=== PATIENT | female | born 1940 | race Caucasian/White ===

== ENCOUNTER → 2018-04-08 | Outpatient (CLI) | payer MEDICARE | END | disposition home or self-care (01) | LOC: CFH 15:53 | PROVIDERS: ATTEND Family Medicine | DX: N32.89 Other specified disorders of bladder (principal); N18.3 Chronic kidney disease, stage 3 (moderate) | CPT/HCPCS: 76770 ==

== ENCOUNTER 2019-03-26 00:06 | Inpatient (IN) | payer MEDICARE ==
[~2019-03-26] VITALS: Ht 177.8 cm; Wt 67.8 kg
[2019-03-26] MEDS ORDERED: DILTIAZEM 5 MG/ML, 5ML IVPush STA (00:24)
[2019-03-26] MEDS ORDERED: DILTIAZEM 125 MG in SODIUM CHLORIDE 0.9% 100 ML IV SCH ×2 (00:27→02:00)
[2019-03-26] MEDS ORDERED: SODIUM CHLORIDE FLUSH 10ML SYR IVF ONE (00:30)
[2019-03-26] MEDS ORDERED: DILTIAZEM 5 MG/ML, 5ML ONE (00:36)
[2019-03-26 00:38] LABS: BASOPHILS # (AUTO) 0.02 x10^3/uL (0-0.1); BASOPHILS % (AUTO) 1 % (0-1); EOSINOPHILS # (AUTO) 0.08 x10^3/uL (0-0.4); EOSINOPHILS % (AUTO) 2 % (1-7); LYMPHOCYTES # (AUTO) 2.06 x10^3/uL (1-3.4); LYMPHOCYTES % (AUTO) 43 % (22-44); MD NO; MEAN CORPUSCULAR HGB CONC 33.4 g/dL (32.4-35.8); MEAN CORPUSCULAR VOLUME 98.9 fL (80-100); MONOCYTES # (AUTO) 0.46 x10^3/uL (0.2-0.8); MONOCYTES % (AUTO) 10 % (2-9); NEUTROPHILS # (AUTO) 2.14 x10^3/uL (1.8-6.8); NEUTROPHILS % (AUTO) 45 % (42-75); PLATELET COUNT 187 x10^3/uL (130-400); RED BLOOD COUNT 4.09 x10^6/uL (3.82-5.3); RED CELL DISTRIBUTION WIDTH 13.9 % (9.6-15.2)
[2019-03-26 00:50] LABS: INTERNATIONAL NORMALIZED RATIO 1.01 (0.93-1.1); PROTHROMBIN TIME 10.6 Seconds (9.6-11.5)
[2019-03-26 00:51] LABS: ALANINE AMINOTRANSFERASE 24 U/L (12-78); ALBUMIN 4.2 g/dL (3.4-5.0); ANION GAP 8 mmol/L (5-15); CALCIUM 9.2 mg/dL (8.5-10.1); CHLORIDE 111 mmol/L (98-107); CREATININE 0.87 mg/dL (0.55-1.02); T4 (THYROXINE) 10.2 mcg/dL (4.8-13.9)
[2019-03-26 00:55] LABS: ALKALINE PHOSPHATASE 72 U/L (45-117); BILIRUBIN,TOTAL 0.7 mg/dL (0.2-1.0); TOTAL PROTEIN 7.7 g/dL (6.4-8.2); TROPONIN I < 0.015 ng/mL (0.000-0.045)
--- NOTE | 2019-03-26 00:55 | NUR ---
TASK RN: PT RESTING ON KRISTIE. DELILAH. VSS. DILT GTT INFUSING AT SET RATE. PT AWARE OF POC FOR ADMIT AND IS AGREEABLE.
[2019-03-26] MEDS ORDERED: LEVO25TA4 PO (00:57)
[2019-03-26] MEDS ORDERED: LATA7.5D EACHEYE (00:57)
[2019-03-26] MEDS ORDERED: ASPIRIN 325 MG TABLET ONE (01:22)
[2019-03-26] MEDS ORDERED: ASPIRIN 325 MG TABLET PO ONE (01:30)
[2019-03-26] MEDS ORDERED: ONDANSETRON ODT 4 MG PO PRN (02:00)
[2019-03-26] MEDS ORDERED: ONDANSETRON 4 MG TABLET PO PRN (02:00)
[2019-03-26 02:44] VITALS: BP_SYST 122; BP_DIAS 16; BP_DIAS 76
[2019-03-26 04:45] VITALS: BP 117/70
[2019-03-26 06:32] VITALS: BP 103/67
[2019-03-26] MEDS ORDERED: ASPIRIN 81 MG TABLET CHEW PO/NG SCH (09:00)
[2019-03-26] MEDS ORDERED: OMNIPAQUE 350 MG/ML, 100ML BOTTLE ONE (12:18)
[2019-03-26] MEDS: METOPROLOL SUCCINATE 25 MG TAB.ER.24H PO SCH (13:04)
[2019-03-26] MEDS: APIXABAN 5 MG TABLET PO SCH ×2 (13:05→21:15)
[2019-03-26 13:06] VITALS: BP 104/65
[2019-03-26] MEDS ORDERED: APIXABAN 5 MG TABLET PO SCH (21:00)
[2019-03-26] MEDS: ATORVASTATIN 40 MG TABLET PO SCH (21:15)
[2019-03-26 21:25] VITALS: BP 139/83
[2019-03-27 03:14] VITALS: BP 114/60
[2019-03-27] MEDS: LEVOTHYROXINE 75 MCG TABLET PO SCH (05:13)
[2019-03-27 05:24] LABS: BASOPHILS # (AUTO) 0.01 x10^3/uL (0-0.1); BASOPHILS % (AUTO) 0 % (0-1); EOSINOPHILS # (AUTO) 0.12 x10^3/uL (0-0.4); EOSINOPHILS % (AUTO) 4 % (1-7); LYMPHOCYTES # (AUTO) 1.85 x10^3/uL (1-3.4); LYMPHOCYTES % (AUTO) 53 % (22-44); MD NO; MEAN CORPUSCULAR HEMOGLOBIN 33.3 pg (27.0-34.8); MEAN CORPUSCULAR HGB CONC 33.7 g/dL (32.4-35.8); MEAN PLATELET VOLUME 9.1 fL (7.4-10.4); MONOCYTES # (AUTO) 0.38 x10^3/uL (0.2-0.8); MONOCYTES % (AUTO) 11 % (2-9); NEUTROPHILS # (AUTO) 1.13 x10^3/uL (1.8-6.8); NEUTROPHILS % (AUTO) 32 % (42-75); PLATELET COUNT 148 x10^3/uL (130-400); RED BLOOD COUNT 3.53 x10^6/uL (3.82-5.3); RED CELL DISTRIBUTION WIDTH 14.3 % (9.6-15.2)
[2019-03-27 05:27] LABS: CHLORIDE 112 mmol/L (98-107)
[2019-03-27 05:33] LABS: ALANINE AMINOTRANSFERASE 22 U/L (12-78); ALBUMIN 3.4 g/dL (3.4-5.0); ALKALINE PHOSPHATASE 57 U/L (45-117); ANION GAP 5 mmol/L (5-15); BILIRUBIN,TOTAL 0.6 mg/dL (0.2-1.0); CALCIUM 8.9 mg/dL (8.5-10.1); CHOL/HDL RATIO 1.8; CHOLESTEROL, TOTAL 170 mg/dL (140-239); CREATININE 0.76 mg/dL (0.55-1.02); HDL CHOL % 55 % (28-40); HDL CHOLESTEROL (DIRECT) 93 mg/dL (40-60); LDL CHOLESTEROL,CALCULATED 68 mg/dL (54-169); LDL/HDL RATIO 0.7 (0.5-3.0); TOTAL PROTEIN 6.2 g/dL (6.4-8.2); TRIGLYCERIDES 43 mg/dL (50-200); VLDL CHOLESTEROL 9 mg/dL (0-25)
[2019-03-27] MEDS ORDERED: ASPIRIN 81 MG TABLET CHEW PO/NG SCH (09:00)
[2019-03-27 09:11] VITALS: BP 92/54
[2019-03-27] MEDS: APIXABAN 5 MG TABLET PO SCH ×2 (09:14→21:00)
[2019-03-27 10:16] VITALS: BP 122/72
[2019-03-27] MEDS: METOPROLOL SUCCINATE 25 MG TAB.ER.24H PO SCH (10:26)
[2019-03-27 13:20] VITALS: BP 103/64
[2019-03-27 19:24] VITALS: BP 104/65
[2019-03-27] MEDS: ATORVASTATIN 40 MG TABLET PO SCH (21:00)
[2019-03-28 00:33] VITALS: BP 143/81
[2019-03-28] MEDS ORDERED: METOPROLOL TARTRATE 25 MG TABLET PO SCH (06:00)
[2019-03-28] MEDS: LEVOTHYROXINE 75 MCG TABLET PO SCH (06:15)
[2019-03-28 07:19] VITALS: BP 119/76
[2019-03-28] MEDS: APIXABAN 5 MG TABLET PO SCH (09:37)
[2019-03-28] MEDS ORDERED: APIX5TAB PO (12:08)
[2019-03-28] MEDS ORDERED: METO25TA35 PO (12:08)
[2019-03-28] MEDS ORDERED: ATOR40TA78 PO (12:08)
[2019-03-28 13:15] VITALS: BP 128/74
== END 2019-03-28 14:00 | disposition home or self-care (01) | DRG 65 ==
LOC: ED 01:17 → EDIP 01:18 → 5SO 02:16 → DCLOUNGE 03-28 13:47
PROVIDERS: ADMIT Internal Medicine; ATTEND Internal Medicine
DX: I63.512 Cerebral infarction due to unspecified occlusion or stenosis of left middle cerebral artery (principal); D68.69 Other thrombophilia; G81.91 Hemiplegia, unspecified affecting right dominant side; R47.81 Slurred speech; R29.703 NIHSS score 3; R29.810 Facial weakness; I48.91 Unspecified atrial fibrillation; E03.9 Hypothyroidism, unspecified; E78.5 Hyperlipidemia, unspecified; H40.9 Unspecified glaucoma; I35.8 Other nonrheumatic aortic valve disorders; Z79.82 Long term (current) use of aspirin; Z82.49 Family history of ischemic heart disease and other diseases of the circulatory system; Z85.038 Personal history of other malignant neoplasm of large intestine; Z87.891 Personal history of nicotine dependence; Z90.49 Acquired absence of other specified parts of digestive tract; Z92.21 Personal history of antineoplastic chemotherapy; Z80.52 Family history of malignant neoplasm of bladder; Z82.3 Family history of stroke; Z81.8 Family history of other mental and behavioral disorders; Z88.5 Allergy status to narcotic agent; Z88.0 Allergy status to penicillin
CPT/HCPCS: 36415; 70450; 70496; 70498; 70551; 80053; 80061; 83735; 84436; 84443; 84484; 85025; 85610; 85730; 93005; 93306; 93880; 99291; G0378; Q9967; 92523-GN

== ENCOUNTER → 2020-01-15 | Outpatient (CLI) | payer MEDICARE ==
[~2020-01-15] MED LIST: APIX5TAB PO; ATOR40TA78 PO; LATA7.5D EACHEYE; LEVO25TA4 PO; METO25TA35 PO
== END | disposition home or self-care (01) ==
LOC: CFH 14:19
PROVIDERS: ATTEND Family Medicine
DX: N63.12 Unspecified lump in the right breast, upper inner quadrant (principal); N63.11 Unspecified lump in the right breast, upper outer quadrant; R92.1 Mammographic calcification found on diagnostic imaging of breast
CPT/HCPCS: 76642; 77066; G0279

== ENCOUNTER 2020-01-18 11:46 | Outpatient (CLI) | payer MEDICARE ==
[2020-01-18] MEDS ORDERED: SODIUM BICARBONATE 4.2%, 5ML ONE (13:31)
[2020-01-18] MEDS ORDERED: LIDOCAINE 1%, 20ML ONE (13:31)
[2020-01-18] MEDS ORDERED: LIDOCAINE 1%-EPI 1:100K, 20ML ONE (13:31)
== END 2020-01-18 23:59 | disposition home or self-care (01) ==
LOC: CFH 11:46
PROVIDERS: ATTEND Family Medicine
DX: N63.10 Unspecified lump in the right breast, unspecified quadrant (principal); C50.411 Malignant neoplasm of upper-outer quadrant of right female breast; Z17.0 Estrogen receptor positive status [ER+]; Z79.899 Other long term (current) drug therapy; Z88.0 Allergy status to penicillin; Z88.1 Allergy status to other antibiotic agents; Z72.89 Other problems related to lifestyle; Z87.891 Personal history of nicotine dependence; Z85.038 Personal history of other malignant neoplasm of large intestine; Z82.49 Family history of ischemic heart disease and other diseases of the circulatory system
CPT/HCPCS: 19083; 77065; 88305; 88341; 88342; 88360; 88361; J3490; 19285

== ENCOUNTER 2020-02-15 12:59 | Outpatient (CLI) | payer MEDICARE ==
[2020-02-15] MEDS ORDERED: ATOR40TA78 PO (13:26)
[2020-02-15] MEDS ORDERED: APIX2.5T PO (13:26)
[2020-02-15] MEDS ORDERED: METO25TA35 PO (13:26)
[2020-02-15] MEDS ORDERED: LEVO75TA5 PO (13:26)
== END 2020-02-15 23:59 | disposition home or self-care (01) ==
LOC: STAR 12:59
PROVIDERS: ATTEND Surgery
DX: Z01.818 Encounter for other preprocedural examination (principal); Z20.828 Contact with and (suspected) exposure to other viral communicable diseases
CPT/HCPCS: 36415; 87635; 93005

== ENCOUNTER 2020-02-19 09:23 | Day surgery (SDC) | payer MEDICARE ==
[~2020-02-19] VITALS: Ht 180.3 cm; Wt 60.0 kg
[~2020-02-19 09:23] MED LIST changes: +APIX2.5T PO; +BUPIVACAINE/EPI 0.5% 1:200K ONE; +ISOSULFAN BLUE 10 MG/ML, 5ML IV ONE; +LEVO75TA5 PO
[2020-02-19] MEDS ORDERED: LACTATED RINGERS 1,000 ML IV SCH (10:16)
[2020-02-19 10:19] VITALS: BP 150/74
[2020-02-19] MEDS ORDERED: DIAZEPAM 5 MG TABLET PO ONE (10:30)
[2020-02-19] MEDS ORDERED: CHLORHEXIDINE 15 ML UDC MM ONE (10:30)
[2020-02-19] MEDS ORDERED: ACETAMINOPHEN 500 MG TABLET PO ONE (10:30)
[2020-02-19] MEDS ORDERED: ONDANSETRON ODT 8 MG PO ONE (10:30)
[2020-02-19] MEDS ORDERED: PROPOFOL 50 ML ONE (10:46)
[2020-02-19] MEDS ORDERED: FENTANYL PF 250 MCG/5ML ONE (10:46)
[2020-02-19] MEDS ORDERED: PROPOFOL 10 MG/ML, 20ML ONE (11:40)
[2020-02-19] MEDS ORDERED: OXYcodone 5 MG/5 ML ORAL.SOL UDC PO PRN (12:00)
[2020-02-19] MEDS ORDERED: HYDROmorphone 1 MG/ML, 1ML INJ IVPush PRN (12:00)
[2020-02-19] MEDS ORDERED: DIAZEPAM 5 MG/ML, 2ML IVPush PRN (12:00)
[2020-02-19] MEDS ORDERED: ONDANSETRON 2MG/ML, 2ML IVPush PRN (12:00)
[2020-02-19] MEDS ORDERED: DIPHENHYDRAMINE 50 MG/ML, 1ML IVPush PRN (12:00)
[2020-02-19] MEDS ORDERED: PROMETHAZINE 25 MG/ML, 1ML IVPush PRN (12:00)
[2020-02-19] MEDS ORDERED: FENTANYL PF 100 MCG/2ML IV PRN (12:00)
[2020-02-19] MEDS ORDERED: EPHEDRINE 50 MG/ML, 1ML IVPush PRN (12:00)
[2020-02-19] MEDS ORDERED: LABETALOL 5MG/ML, 20ML IV PRN (12:00)
[2020-02-19] MEDS ORDERED: EPHEDRINE 50 MG/ML, 1ML IM PRN (12:00)
== END 2020-02-19 16:20 | disposition home or self-care (01) ==
LOC: OUT 09:23 → EDSTATUS 12:00 → OUT 16:20
PROVIDERS: ATTEND Surgery
DX: C50.511 Malignant neoplasm of lower-outer quadrant of right female breast (principal); C77.3 Secondary and unspecified malignant neoplasm of axilla and upper limb lymph nodes; E03.9 Hypothyroidism, unspecified; Z17.0 Estrogen receptor positive status [ER+]; Z79.01 Long term (current) use of anticoagulants; Z79.890 Hormone replacement therapy; Z79.899 Other long term (current) drug therapy; Z87.891 Personal history of nicotine dependence; Z88.0 Allergy status to penicillin; Z88.5 Allergy status to narcotic agent; Z98.890 Other specified postprocedural states; Z86.73 Personal history of transient ischemic attack (TIA), and cerebral infarction without residual deficits
CPT/HCPCS: 19120; 38525; 38792; 88305; 88307; A9541; J2704; J3010; J7120; Q0162

== ENCOUNTER → 2020-03-08 | Outpatient (CLI) | payer MEDICARE ==
[~2020-03-08] MED LIST changes: -BUPIVACAINE/EPI 0.5% 1:200K ONE; -ISOSULFAN BLUE 10 MG/ML, 5ML IV ONE
== END | disposition home or self-care (01) ==
LOC: ROC 07:32
PROVIDERS: ATTEND Radiology Radiation Oncology
DX: C50.411 Malignant neoplasm of upper-outer quadrant of right female breast (principal); Z17.0 Estrogen receptor positive status [ER+]; E03.9 Hypothyroidism, unspecified; Z79.01 Long term (current) use of anticoagulants; Z79.899 Other long term (current) drug therapy; Z98.890 Other specified postprocedural states; Z87.891 Personal history of nicotine dependence; Z72.89 Other problems related to lifestyle; Z85.038 Personal history of other malignant neoplasm of large intestine
CPT/HCPCS: G0463

== ENCOUNTER → 2020-03-14 | Outpatient (CLI) | payer MEDICARE ==
[~2020-03-14] MED LIST changes: +OMNIPAQUE 350 MG/ML, 100ML BOTTLE ONE
[2020-03-14 11:17] LABS: CREATININE 0.92 mg/dL (0.55-1.02)
== END | disposition home or self-care (01) ==
LOC: RAD 10:45
PROVIDERS: ATTEND Pathology Hematology
DX: C50.211 Malignant neoplasm of upper-inner quadrant of right female breast (principal); C18.9 Malignant neoplasm of colon, unspecified; E05.90 Thyrotoxicosis, unspecified without thyrotoxic crisis or storm; J98.4 Other disorders of lung; M16.12 Unilateral primary osteoarthritis, left hip; M47.816 Spondylosis without myelopathy or radiculopathy, lumbar region; M41.86 Other forms of scoliosis, lumbar region; M85.80 Other specified disorders of bone density and structure, unspecified site; M51.36 Other intervertebral disc degeneration, lumbar region
CPT/HCPCS: 36415; 71260; 74177; 78306; 82565; A9503; Q9967

== ENCOUNTER → 2020-04-19 | Outpatient (CLI) | payer MEDICARE ==
[~2020-04-19] MED LIST changes: -OMNIPAQUE 350 MG/ML, 100ML BOTTLE ONE
== END | disposition home or self-care (01) ==
LOC: CFH 11:14
PROVIDERS: ATTEND Pathology Hematology
DX: C50.211 Malignant neoplasm of upper-inner quadrant of right female breast (principal); C18.9 Malignant neoplasm of colon, unspecified; E05.90 Thyrotoxicosis, unspecified without thyrotoxic crisis or storm; M85.80 Other specified disorders of bone density and structure, unspecified site
CPT/HCPCS: 77080

== ENCOUNTER 2020-05-07 13:34 | Emergency (ER) | payer MEDICARE ==
[~2020-05-07] VITALS: Ht 175.3 cm; Wt 60.1 kg
--- NOTE | 2020-05-07 14:01 | NUR ---
PT SITTING UP ON GURNEY AWAKE & COMFORTABLE, RESPONDS APPROP TO STAFF, NAD, COMFORT MEASURES PROVIDED, CALL LIGHT WITHIN REACH.
[2020-05-07 14:53] LABS: BASOPHILS % (AUTO) 0 % (0-1); EOSINOPHILS % (AUTO) 2 % (1-7); LYMPHOCYTES % (AUTO) 9 % (22-44); MD NO; MEAN CORPUSCULAR HEMOGLOBIN 32.6 pg (27.0-34.8); MEAN PLATELET VOLUME 8.9 fL (7.4-10.4); MONOCYTES % (AUTO) 17 % (2-9); NEUTROPHILS % (AUTO) 72 % (42-75); PLATELET COUNT 107 x10^3/uL (130-400); RED BLOOD COUNT 3.71 x10^6/uL (3.82-5.3); RED CELL DISTRIBUTION WIDTH 14.2 % (9.6-15.2)
[2020-05-07 14:57] LABS: ALBUMIN 3.7 g/dL (3.4-5.0); ANION GAP 7 mmol/L (5-15); CALCIUM 9.1 mg/dL (8.5-10.1); CHLORIDE 107 mmol/L (98-107)
[2020-05-07 15:00] LABS: ALANINE AMINOTRANSFERASE 34 U/L (12-78); ALKALINE PHOSPHATASE 105 U/L (45-117); BILIRUBIN,TOTAL 0.7 mg/dL (0.2-1.0); CREATININE 0.82 mg/dL (0.55-1.02); TOTAL PROTEIN 6.9 g/dL (6.4-8.2)
--- NOTE | 2020-05-07 15:02 | NUR ---
PT REMAINS SITTING UP ON GURNEY AWAKE & COMFORTABLE, RESPONDS APPROP TO STAFF, NAD, COMFORT MEASURES PROVIDED, CALL LIGHT WITHIN REACH.
--- NOTE | 2020-05-07 16:04 | NUR ---
PT SITTING UP ON GURNEY AWAKE & COMFORTABLE, RESPONDS APPROP TO STAFF, NAD, NO NEEDS AT THIS TIME, CALL LIGHT WITHIN REACH.
[2020-05-07] MEDS ORDERED: DILTIAZEM 5 MG/ML, 5ML IV ONE (16:30)
[2020-05-07] MEDS ORDERED: DILTIAZEM 125 MG in SODIUM CHLORIDE 0.9% 100 ML IV SCH (16:30)
[2020-05-07] MEDS ORDERED: DILTIAZEM 5 MG/ML, 5ML ONE (16:40)
[2020-05-07 17:05] VITALS: BP 101/76
--- NOTE | 2020-05-07 17:05 | NUR ---
PT CONTINUES SITTING UP ON GURNEY AWAKE & COMFORTABLE, RESPONDS APPROP TO STAFF, NAD WHILE PT IN & OUT OF SINUS RHYTHM- DR SUN AWARE, NO NEEDS AT THIS TIME, CALL LIGHT WITHIN REACH.
[2020-05-07 17:24] LABS: T4 (THYROXINE) 11.9 mcg/dL (4.8-13.9); TROPONIN I < 0.015 ng/mL (0.000-0.045)
--- NOTE | 2020-05-07 18:03 | NUR ---
PT SITTING UP ON GURNEY AWAKE & COMFORTABLE, RESPONDS APPROP TO STAFF, NAD WHILE PT CONTINUES IN & OUT OF SINUS RHYTHM, NO NEEDS AT THIS TIME, CALL LIGHT WITHIN REACH.
--- NOTE | 2020-05-07 19:03 | NUR ---
Patient given discharge instructions and they have confirmed that they understand the instructions. Patient ambulatory with steady gait.
== END 2020-05-07 19:04 | disposition home or self-care (01) ==
LOC: ED 18:55
DX: I48.0 Paroxysmal atrial fibrillation (principal); R00.0 Tachycardia, unspecified; Z86.73 Personal history of transient ischemic attack (TIA), and cerebral infarction without residual deficits; I48.91 Unspecified atrial fibrillation; E03.9 Hypothyroidism, unspecified; Z85.038 Personal history of other malignant neoplasm of large intestine
CPT/HCPCS: 36415; 80053; 83880; 84436; 84443; 84484; 85025; 93005; 99285

== ENCOUNTER 2020-05-19 14:24 | Emergency (ER) | payer MEDICARE ==
[~2020-05-19] VITALS: Ht 175.3 cm; Wt 60.2 kg
[2020-05-19] MEDS ORDERED: DILTIAZEM 5 MG/ML, 5ML ONE (14:53)
[2020-05-19] MEDS ORDERED: DILTIAZEM 5 MG/ML, 5ML IVPush ONE (15:00)
[2020-05-19] MEDS ORDERED: SODIUM CHLORIDE FLUSH 10ML SYR IVF ONE (15:00)
[2020-05-19] MEDS ORDERED: SODIUM CHLORIDE 0.9% 1,000ML IVBOLUS ONE (15:00)
--- NOTE | 2020-05-19 15:15 | NUR ---
IV STARTED. ORDERED MEDS AND FLUIDS INFUSING. WILL CONTINUE TO MONITOR. DAUGHTER AT BEDSIDE. CALL LIGHT WITHIN REACH.
[2020-05-19 15:19] LABS: BASOPHILS % (AUTO) 0 % (0-1); EOSINOPHILS % (AUTO) 2 % (1-7); LYMPHOCYTES % (AUTO) 14 % (22-44); MEAN CORPUSCULAR HEMOGLOBIN 32.2 pg (27.0-34.8); MEAN CORPUSCULAR HGB CONC 33.6 g/dL (32.4-35.8); MEAN PLATELET VOLUME 8.6 fL (7.4-10.4); MONOCYTES % (AUTO) 19 % (2-9); NEUTROPHILS % (AUTO) 65 % (42-75); PLATELET COUNT 164 x10^3/uL (130-400); RED BLOOD COUNT 3.97 x10^6/uL (3.82-5.3); RED CELL DISTRIBUTION WIDTH 13.9 % (9.6-15.2)
[2020-05-19 15:20] LABS: ALANINE AMINOTRANSFERASE 30 U/L (12-78); ANION GAP 7 mmol/L (5-15); CALCIUM 9.8 mg/dL (8.5-10.1); CHLORIDE 105 mmol/L (98-107); CREATININE 0.91 mg/dL (0.55-1.02)
[2020-05-19 15:24] LABS: MD NO
[2020-05-19 15:30] LABS: ALKALINE PHOSPHATASE 112 U/L (45-117); BILIRUBIN,TOTAL 0.9 mg/dL (0.2-1.0); TOTAL PROTEIN 7.7 g/dL (6.4-8.2)
[2020-05-19] MEDS ORDERED: SODIUM CHLORIDE 0.9%, 500ML IVBOLUS ONE (16:00)
--- NOTE | 2020-05-19 16:20 | NUR ---
PT ABLE TO AMBULATE TO BATHROOM STEADILY TO PROVIDE URINE SAMPLE. URINE WALKED TO LAB. PT HOOKED BACK UP TO VITALS MONITORS. WILL CONTINUE TO MONITOR.
[2020-05-19 16:27] LABS: MICROSCOPIC NOT IND
[2020-05-19] MEDS ORDERED: PROCAINAMIDE HCL 500 MG/ML, 2ML IV ONE (16:30)
[2020-05-19] MEDS ORDERED: PROCAINAMIDE HCL IV ONE (17:00)
[2020-05-19] MEDS ORDERED: DEXTROSE 5% IV ONE (17:00)
--- NOTE | 2020-05-19 18:06 | NUR ---
PT HAS CONVERTED INTO NSR. EKG HAS BEEN DONE. ERP AWARE AND HAS SPOKEN WITH PT. DAUGHTER BACK AT BEDSIDE. WILL CONTINUE TO MONITOR. PT .
[2020-05-19 18:30] VITALS: BP 118/61
[2020-05-29] MEDS ORDERED: AMIO200T42 PO ×3 (12:48→14:46)
[2020-05-29] MEDS ORDERED: METO25TA35 PO (12:48)
== END 2020-05-19 18:48 | disposition home or self-care (01) ==
LOC: ED 16:40
DX: I48.0 Paroxysmal atrial fibrillation (principal); Z85.3 Personal history of malignant neoplasm of breast; E03.9 Hypothyroidism, unspecified; R00.0 Tachycardia, unspecified; Z86.73 Personal history of transient ischemic attack (TIA), and cerebral infarction without residual deficits; Z85.038 Personal history of other malignant neoplasm of large intestine
CPT/HCPCS: 36415; 80053; 81003; 84443; 85025; 93005; 96361; 96365; 96375; 99285; J2690; J7030; J7040

== ENCOUNTER → 2020-05-22 | Outpatient (CLI) | payer MEDICARE | END | disposition home or self-care (01) | LOC: ROC 07:45 | PROVIDERS: ATTEND Radiology Radiation Oncology | DX: C50.411 Malignant neoplasm of upper-outer quadrant of right female breast (principal); I48.0 Paroxysmal atrial fibrillation; E03.9 Hypothyroidism, unspecified; M16.12 Unilateral primary osteoarthritis, left hip; Z17.0 Estrogen receptor positive status [ER+]; Z79.01 Long term (current) use of anticoagulants; Z87.891 Personal history of nicotine dependence; Z79.899 Other long term (current) drug therapy; Z85.038 Personal history of other malignant neoplasm of large intestine; Z86.73 Personal history of transient ischemic attack (TIA), and cerebral infarction without residual deficits | CPT/HCPCS: G0463 ==

== ENCOUNTER 2020-05-24 15:30 | Inpatient (IN) | payer MEDICARE ==
[~2020-05-24] VITALS: Ht 175.3 cm; Wt 60.1 kg
[2020-05-24] MEDS ORDERED: DILTIAZEM 5 MG/ML, 5ML ONE (16:21)
[2020-05-24] MEDS ORDERED: DILTIAZEM 5 MG/ML, 5ML IV ONE (16:30)
[2020-05-24] MEDS ORDERED: DILTIAZEM 125 MG in SODIUM CHLORIDE 0.9% 100 ML IV SCH ×2 (16:30→19:00)
[2020-05-24] MEDS ORDERED: SODIUM CHLORIDE FLUSH 10ML SYR IVF ONE (16:30)
--- NOTE | 2020-05-24 16:30 | NUR ---
PT PRESENTS TO ED WITH C/O GENERALIZED WEAKNESS/DIZZINESS , PALPITATIONS, ONSET THIS AM, HX AFIB. PT TAKES ELIQUIS TWICE DAILY. PT STATES LAST DOSE WAS 0830 THIS AM AND SHE HAS NOT MISSED ANY DOSES. PT FOUND TO BE IN AFIB, RATE 90-130'S ON MONITOR. EKG TAKEN IN TRIAGE, REVIEWED BY ERP. ALL MONITORS IN PLACE. PT DENIES PAIN. PT A&O, RESPS EVEN AND UNLABORED. PIV PLACED, PT MEDICATED PER EMAR WITH DILTIAZEM, PUSHED SLOWLY OVER 5 MIN. MINIMAL RESPONSE IN RATE. CALL LIGHT IN REACH.
[2020-05-24 16:47] LABS: ALBUMIN 3.8 g/dL (3.4-5.0); ANION GAP 6 mmol/L (5-15); CALCIUM 9.6 mg/dL (8.5-10.1); CHLORIDE 104 mmol/L (98-107); CREATININE 0.88 mg/dL (0.55-1.02)
[2020-05-24 16:51] LABS: BASOPHILS % (AUTO) 1 % (0-1); EOSINOPHILS % (AUTO) 2 % (1-7); LYMPHOCYTES % (AUTO) 14 % (22-44); MEAN CORPUSCULAR HEMOGLOBIN 32.3 pg (27.0-34.8); MEAN CORPUSCULAR HGB CONC 33.6 g/dL (32.4-35.8); MEAN PLATELET VOLUME 8.2 fL (7.4-10.4); MONOCYTES % (AUTO) 14 % (2-9); NEUTROPHILS % (AUTO) 69 % (42-75); PLATELET COUNT 172 x10^3/uL (130-400); RED CELL DISTRIBUTION WIDTH 13.9 % (9.6-15.2); TROPONIN I < 0.015 ng/mL (0.000-0.045)
[2020-05-24 16:54] LABS: MD NO
[2020-05-24] MEDS ORDERED: PROPOFOL 10 MG/ML, 20ML ONE (17:17)
--- NOTE | 2020-05-24 17:30 | NUR ---
PT COUNSELED BY MD SUN, AGREES TO TRY ELECTRICAL CARDIOVERSION WITH PROCEDURAL SEDATION. RN INSTRUCTED TO HOLD DILTIAZEM GTT AT THIS TIME. CONSENT FORM SIGNED BY PT AND EDIA. PT IS IN AFIB, RATE 90-130'S, WITH NO ECTOPY. THONG SUN NOTIFIED PT HAS RECENTLY UNDERGONE RT LUMPECTOMY AND LYMPH NODE REMOVAL 02/2020 WITH RADIATION THAT WAS COMPLETED 3 WEEKS AGO. SURGICAL SITE WELL APPROXIMATED, SKIN REDDENED TO RADIATION SITES. PADS FOR CARDIOVERSION WERE NOT PLACED ON IRRITATED SKIN. DAUGHTER AT BEDSIDE.
--- NOTE | 2020-05-24 17:50 | NUR ---
ELECTRICAL CARDIOVERSION START TIME WAS 174, END TIME 174. PT GIVEN PROPOFOL BY S[place] SUN 50MG (AT 174), AND 30 MG (AT 1745) FOR TOTAL OF 80 MG. PT DEFIBRILLATED TWICE, ONCE AT 174, SECOND TIME AT 1746 , EACH WITH ENERGY 200J. PT TOLERATED WELL. ALL MONITORS IN PLACE INCLUDING ETCO2 MONITOR. SEE PAPER CHARTING FOR INTRA-PROCEDURE VITAL SIGNS AND SEDATION SCORE.
--- NOTE | 2020-05-24 17:58 | NUR ---
CARDIOVERSION WITH PROCEDURAL SEDATION COMPLETE, PT RETURNED TO BASELINE SEDATION SCORE. PT IS STILL IN AFIB, RATE 90-130 POST CARDIOVERSION, MD INSTRUCTED RN TO START DILTIAZEM DRIP AT 10MG/HR. DILTIAZEM GTT INITIATED. PT A&O, RESPS EVEN AND UNLABORED, PT ABLE TO SPEAK IN FULL SENTENCES WITHOUT DIFFICULTY. PT DENIES PAIN. PT TO BE ADMITTED FOR AFIB RATE CONTROL, PT AND DAUGHTER EDUCATED, AGREEABLE TO POC.
--- NOTE | 2020-05-24 18:29 | NUR ---
KING SOMMER AT BEDSIDE TO ADMIT PT. PT'S ETCO2 MAINTAINING LEVEL OF 29-32 POST PROCEDURE. PT IS A&OX4, RESPS EVEN AND UNLABORED, SPEAKING CLEARLY. PT DENIES PAIN. DAUGTHER AT BEDSIDE. 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 DILTIAZEM GTT INFUSING AT 10MG/HR.
[2020-05-24] MEDS ORDERED: SODIUM CHLORIDE FLUSH 10ML SYR IVF PRN (18:30)
[2020-05-24] MEDS ORDERED: ACETAMINOPHEN 325 MG TABLET PO PRN (19:00)
[2020-05-24] MEDS ORDERED: ONDANSETRON ODT 4 MG PO PRN (19:00)
[2020-05-24] MEDS ORDERED: POLYETHYLENE GLYCOL 17 GM PACKET PO PRN (19:00)
[2020-05-24] MEDS ORDERED: BISACODYL 10 MG SUPP PR PRN (19:00)
--- NOTE | 2020-05-24 19:00 | NUR ---
report given to SHAMAR Camacho who is assuming care.
--- NOTE | 2020-05-24 19:03 | NUR ---
REPORT FROM WERNER IBANEZ
--- NOTE | 2020-05-24 19:06 | NUR ---
pt meeting some sepsis criteria including pneumonia, tachycardia, and low wbc. ACCOUNTING TUTOR aware of low wbc, states this is secondary to recent radiation. ACCOUNTING TUTORZaid Aparicio called to notify pt meeting sepsis criteria, no answer. message left with request to call back. SHAMAR Camacho aware of need to address suspected sepsis.
[2020-05-24 19:12] LABS: FREE T4 (FREE THYROXINE) 1.54 ng/dL (0.76-1.46)
--- NOTE | 2020-05-24 19:13 | NUR ---
THIS RN SPOKE WITH KING SOMMER, PT'S PNEUOMONIA READ ON XRAY AND SEPSIS MARKERS DISCUSSED. CHECK SERVICES CLERK HAS REVIEWED CXR AND STATES THIS IS LIKELY NOT PNEUMONIA, SUSPECTED DAMAGE SECONDARY TO RADIATION IN THIS REGION. CHECK SERVICES CLERK STATES ANTIBIOTICS AND SEPSIS ORDER SET NOT INDICATED AT THIS TIME.
--- NOTE | 2020-05-24 19:56 | NUR ---
PT UP TO BSC, DENIES DIZZYNESS. HR [id number] A-FIB NOTED ON MONITOR, DILT GTT INFUSING
[2020-05-24] MEDS ORDERED: ATORVASTATIN 40 MG TABLET ONE (20:22)
[2020-05-24] MEDS ORDERED: METOPROLOL TARTRATE 25 MG TAB ONE (20:22)
[2020-05-24] MEDS: APIXABAN 2.5 MG TABLET PO SCH (20:46)
--- NOTE | 2020-05-24 20:50 | NUR ---
PT GIVEN CRACKERS AND PM MEDS
--- NOTE | 2020-05-24 20:53 | NUR ---
REPORT GIVEN TO SOTERO IBANEZ
[2020-05-24] MEDS ORDERED: METOPROLOL TARTRATE 25 MG TAB PO SCH (21:00)
[2020-05-24] MEDS ORDERED: ATORVASTATIN 40 MG TABLET PO SCH (21:00)
[2020-05-24] MEDS ORDERED: MORPHINE SULFATE 4 MG/ML, 1ML ONE (21:07)
[2020-05-24 21:25] VITALS: BP 102/65
[2020-05-24] MEDS: SODIUM CHLORIDE FLUSH 10ML SYR IVF SCH (23:26)
[2020-05-24] MEDS ORDERED: LATANOPROST OPHTH 0.005%, 2.5ML EACHEYE SCH (23:30)
[2020-05-25 01:56] VITALS: BP 112/73
[2020-05-25 05:57] LABS: BASOPHILS % (AUTO) 1 % (0-1); EOSINOPHILS % (AUTO) 4 % (1-7); LYMPHOCYTES % (AUTO) 16 % (22-44); MD NO; MEAN CORPUSCULAR HEMOGLOBIN 33.4 pg (27.0-34.8); MEAN CORPUSCULAR HGB CONC 34.8 g/dL (32.4-35.8); MEAN PLATELET VOLUME 8.3 fL (7.4-10.4); MONOCYTES % (AUTO) 17 % (2-9); NEUTROPHILS % (AUTO) 62 % (42-75); PLATELET COUNT 173 x10^3/uL (130-400); RED BLOOD COUNT 3.23 x10^6/uL (3.82-5.3); RED CELL DISTRIBUTION WIDTH 13.9 % (9.6-15.2)
[2020-05-25 05:59] LABS: ANION GAP 5 mmol/L (5-15); CALCIUM 8.8 mg/dL (8.5-10.1); CHLORIDE 111 mmol/L (98-107); CREATININE 0.78 mg/dL (0.55-1.02)
[2020-05-25] MEDS ORDERED: LEVOTHYROXINE 50 MCG TABLET PO SCH (06:00)
[2020-05-25] MEDS ORDERED: LEVOTHYROXINE 75 MCG TABLET PO SCH (06:00)
[2020-05-25 06:03] LABS: TROPONIN I < 0.015 ng/mL (0.000-0.045)
[2020-05-25] MEDS ORDERED: CEFTRIAXONE PMX 2GM/50ML 50 ML IVPB SCH (07:30)
[2020-05-25 07:42] VITALS: BP 108/60
[2020-05-25] MEDS: APIXABAN 2.5 MG TABLET PO SCH (08:42)
[2020-05-25] MEDS: SODIUM CHLORIDE FLUSH 10ML SYR IVF SCH (08:44)
[2020-05-25] MEDS ORDERED: METOPROLOL TARTRATE 25 MG TAB PO SCH ×2 (09:00→18:00)
[2020-05-25] MEDS ORDERED: AZITHROMYCIN 500 MG TABLET PO SCH (09:00)
[2020-05-25] MEDS ORDERED: SENNA/DOCUSATE TABLET PO SCH (09:00)
[2020-05-25 12:44] VITALS: BP 101/60
[2020-05-25] MEDS ORDERED: LEVO750T6 PO (14:34)
== END 2020-05-25 15:48 | disposition home or self-care (01) | DRG 308 ==
LOC: ED 16:51 → EDIP 19:47 → 5SO 21:09 → DCLOUNGE 05-25 15:35
PROVIDERS: ADMIT Internal Medicine; ATTEND Hospitalist
PROC: 5A2204Z Restoration of Cardiac Rhythm, Single (ICD-10-PCS; principal; 2020-05-24)
DX: I48.0 Paroxysmal atrial fibrillation (principal); J18.9 Pneumonia, unspecified organism; D68.69 Other thrombophilia; I50.30 Unspecified diastolic (congestive) heart failure; J44.0 Chronic obstructive pulmonary disease with (acute) lower respiratory infection; C50.919 Malignant neoplasm of unspecified site of unspecified female breast; I48.20 Chronic atrial fibrillation, unspecified; D72.819 Decreased white blood cell count, unspecified; E03.9 Hypothyroidism, unspecified; E07.81 Sick-euthyroid syndrome; E78.5 Hyperlipidemia, unspecified; H40.9 Unspecified glaucoma; I49.5 Sick sinus syndrome; I11.0 Hypertensive heart disease with heart failure; Z82.49 Family history of ischemic heart disease and other diseases of the circulatory system; Z85.038 Personal history of other malignant neoplasm of large intestine; Z85.3 Personal history of malignant neoplasm of breast; Z86.73 Personal history of transient ischemic attack (TIA), and cerebral infarction without residual deficits; Z90.49 Acquired absence of other specified parts of digestive tract; Z98.42 Cataract extraction status, left eye; Z98.41 Cataract extraction status, right eye; Z88.6 Allergy status to analgesic agent; Z88.0 Allergy status to penicillin
CPT/HCPCS: 36415; 71045; 80048; 82040; 83735; 83880; 84439; 84443; 84484; 85025; 93005; 93306; G0378; J0696

== ENCOUNTER 2020-08-09 07:34 | Outpatient (CLI) | payer MEDICARE ==
[~2020-08-09 07:34] MED LIST changes: +AMIO200T42 PO; +LEVO750T6 PO
== END 2020-08-09 23:59 | disposition home or self-care (01) ==
LOC: ROC 07:34
PROVIDERS: ATTEND Radiology Radiation Oncology
DX: Z08 Encounter for follow-up examination after completed treatment for malignant neoplasm (principal); Z85.3 Personal history of malignant neoplasm of breast
CPT/HCPCS: G0463

== ENCOUNTER 2020-09-19 13:59 | Outpatient (CLI) | payer MEDICARE | END 2020-09-19 23:59 | disposition home or self-care (01) | LOC: RAD 13:59 | PROVIDERS: ATTEND Nurse Practitioner Family | DX: J90 Pleural effusion, not elsewhere classified (principal); I48.91 Unspecified atrial fibrillation; J98.4 Other disorders of lung | CPT/HCPCS: 71046 ==

== ENCOUNTER → 2020-09-25 | Outpatient (CLI) | payer MEDICARE ==
[~2020-09-25] MED LIST changes: +OMNIPAQUE 350 MG/ML, 75ML BOTTLE ONE
[2020-09-25 16:18] LABS: BASOPHILS % (AUTO) 1 % (0-1); EOSINOPHILS % (AUTO) 2 % (1-7); LYMPHOCYTES % (AUTO) 26 % (22-44); MEAN CORPUSCULAR HEMOGLOBIN 32.1 pg (27.0-34.8); MEAN CORPUSCULAR HGB CONC 33.3 g/dL (32.4-35.8); MEAN PLATELET VOLUME 9.1 fL (7.4-10.4); MONOCYTES % (AUTO) 11 % (2-9); NEUTROPHILS % (AUTO) 62 % (42-75); PLATELET COUNT 141 x10^3/uL (130-400); RED BLOOD COUNT 3.87 x10^6/uL (3.82-5.3); RED CELL DISTRIBUTION WIDTH 14.7 % (9.6-15.2)
[2020-09-25 16:28] LABS: ALANINE AMINOTRANSFERASE 29 U/L (12-78); ALBUMIN 4.2 g/dL (3.4-5.0); ANION GAP 8 mmol/L (5-15); CALCIUM 9.4 mg/dL (8.5-10.1); CHLORIDE 105 mmol/L (98-107); CREATININE 0.94 mg/dL (0.55-1.02)
[2020-09-25 16:32] LABS: ALKALINE PHOSPHATASE 79 U/L (45-117); BILIRUBIN,TOTAL 0.8 mg/dL (0.2-1.0); TOTAL PROTEIN 7.3 g/dL (6.4-8.2)
[2020-09-25 16:59] LABS: MD SCAN
[2020-09-25 17:26] LABS: FREE T4 (FREE THYROXINE) 1.69 ng/dL (0.76-1.46)
== END | disposition home or self-care (01) ==
LOC: RAD 15:29
PROVIDERS: ATTEND Nurse Practitioner Family
DX: J98.11 Atelectasis (principal); J90 Pleural effusion, not elsewhere classified; I48.91 Unspecified atrial fibrillation; R06.02 Shortness of breath; J98.19 Other pulmonary collapse
CPT/HCPCS: 36415; 71260; 80053; 83880; 84439; 84443; 84481; 85025; Q9967

== ENCOUNTER 2020-10-02 10:11 | Outpatient (CLI) | payer MEDICARE ==
[~2020-10-02 10:11] MED LIST changes: -OMNIPAQUE 350 MG/ML, 75ML BOTTLE ONE
== END 2020-10-02 23:59 | disposition home or self-care (01) ==
LOC: ROC 10:11
PROVIDERS: ATTEND Radiology Radiation Oncology
DX: Z08 Encounter for follow-up examination after completed treatment for malignant neoplasm (principal); Z85.3 Personal history of malignant neoplasm of breast; I48.91 Unspecified atrial fibrillation
CPT/HCPCS: G0463

== ENCOUNTER → 2020-11-28 | Outpatient (CLI) | payer MEDICARE ==
[2020-11-28 12:16] LABS: ALANINE AMINOTRANSFERASE 24 U/L (12-78); ALBUMIN 4.1 g/dL (3.4-5.0); ANION GAP 7 mmol/L (5-15); CALCIUM 9.3 mg/dL (8.5-10.1); CHLORIDE 105 mmol/L (98-107)
[2020-11-28 12:28] LABS: ALKALINE PHOSPHATASE 79 U/L (45-117); BILIRUBIN,TOTAL 0.9 mg/dL (0.2-1.0); CHOL/HDL RATIO 1.7; CHOLESTEROL, TOTAL 171 mg/dL (140-239); FREE T4 (FREE THYROXINE) 1.48 ng/dL (0.76-1.46); HDL CHOL % 59 % (28-40); HDL CHOLESTEROL (DIRECT) 101 mg/dL (40-60); LDL CHOLESTEROL,CALCULATED 58 mg/dL (54-169); LDL/HDL RATIO 0.6 (0.5-3.0); TOTAL PROTEIN 7.4 g/dL (6.4-8.2); TRIGLYCERIDES 61 mg/dL (50-200); VLDL CHOLESTEROL 12 mg/dL (0-25)
== END | disposition home or self-care (01) ==
LOC: LAB 11:41
PROVIDERS: ATTEND Internal Medicine Cardiovascular Disease
DX: C18.9 Malignant neoplasm of colon, unspecified (principal); C50.911 Malignant neoplasm of unspecified site of right female breast; D68.69 Other thrombophilia; E03.9 Hypothyroidism, unspecified; D72.810 Lymphocytopenia; E78.2 Mixed hyperlipidemia; E87.2 Acidosis; G45.9 Transient cerebral ischemic attack, unspecified; H40.9 Unspecified glaucoma; G81.01 Flaccid hemiplegia affecting right dominant side
CPT/HCPCS: 36415; 80053; 80061; 84439; 84443; 84481

== ENCOUNTER → 2021-01-17 | Outpatient (CLI) | payer MEDICARE | END | disposition home or self-care (01) | LOC: CFH 13:42 | PROVIDERS: ATTEND Radiology Radiation Oncology | DX: Z12.31 Encounter for screening mammogram for malignant neoplasm of breast (principal); C50.411 Malignant neoplasm of upper-outer quadrant of right female breast | CPT/HCPCS: 77063; 77067 ==

== ENCOUNTER 2021-02-07 07:51 | Outpatient (CLI) | payer MEDICARE | END 2021-02-07 23:59 | disposition home or self-care (01) | LOC: ROC 07:51 | PROVIDERS: ATTEND Radiology Radiation Oncology | DX: Z08 Encounter for follow-up examination after completed treatment for malignant neoplasm (principal); Z85.3 Personal history of malignant neoplasm of breast | CPT/HCPCS: G0463 ==